=== PATIENT | female | born 1980 | race Hispanic/Latino ===

== ENCOUNTER 2016-09-26 11:13 | Emergency (ER) | payer OTHER ==
[~2016-09-26] VITALS: Ht 162.6 cm; Wt 80.1 kg
[~2016-09-26 11:13] MED LIST: MACROBID100 MG PO; PYRIDIUM100 MG PO; PYRIDIUM200 MG PO; VITAMIN D35000 UNIT PO
[2016-09-26 14:33] VITALS: BP 123/80
== END 2016-09-26 14:34 | disposition home or self-care (01) ==
LOC: EME 11:13
DX: N30.10 Interstitial cystitis (chronic) without hematuria (principal); Z87.440 Personal history of urinary (tract) infections; Z88.6 Allergy status to analgesic agent; Z88.2 Allergy status to sulfonamides
CPT/HCPCS: 99281; 99284